=== PATIENT | male | born 1980 | race American Indian/Alaskan Native ===

== ENCOUNTER → 2018-07-07 | Emergency (ER) | payer BC ==
[2018-07-07 07:33] VITALS: BP 119/76
--- NOTE | 2018-07-07 09:30 | Emergency Department Report ---
Chief Complaint: Medical Clearance Stated Complaint: POSS THYROID PROBLEMS STD Time Seen by Provider: 07/07/18 09:17 - HPI History of Present Illness: 38-year-old male presents with a few different chronic issues. The patient has been having issues with muscle spasms and cramping. He has some intermittent rectal bleeding with bowel movements. Both these issues have been going on for the past year. He says that he saw an urgent care regarding the rectal bleeding and was told that it was something related to straining with her bowel movements. Patient says that he did some Internet searches regarding his symptoms and is concerned regarding thyroid disease and colon cancer. The patient is also requesting STD checks. He does not have a primary care physician but says that he just got insurance. Patient is a cigarette smoker. - ROS Review of Systems: Positive for muscle cramping and pain, intermittent rectal bleeding Negative for fever, nausea, vomiting, chest pain, shortness of breath, cough - Exam Vital Signs: Vital Signs 07/07/18 07:21 Temperature 98.1 F Pulse Rate 71 Respiratory 18 Rate Blood Pressure 119/76 O2 Sat by Pulse 100 Oximetry Physical Exam: Heart and lungs sounds are normal to auscultation. The patient is awake and alert in no acute distress. No palpable anterior neck swelling or mass. MSE screening note: Focused history and physical exam performed. Due to findings the following was ordered: I have ordered a CBC, BMP and TSH. Assuming all of those are negative or normal , the patient will be discharged home with a referral for primary care, gastroenterology and/or the health Department. ED Disposition for MSE Condition: Stable Referrals: PRIMARY CARE, [Primary Care Provider] - 3-5 Days
[2018-07-07 10:01] LABS: Hematocrit 44.3 % (35.5-45.6); Hemoglobin 15.3 gm/dl (11.8-15.2); Mean Corpuscular HGB Conc 35 % (32-34); Mean Corpuscular Hemoglobin 32 pg (28-32); Mean Corpuscular Volume 93 fl (84-94); Platelet Count 319 K/mm3 (140-440); Red Blood Count 4.78 M/mm3 (3.65-5.03); Red Cell Distribution Width 13.3 % (13.2-15.2)
[2018-07-07 10:11] LABS: BUN/Creatinine Ratio 18; Blood Urea Nitrogen 16 mg/dL (9-20); Calcium 9.3 mg/dL (8.4-10.2); Hemolysis Index 35
[2018-07-07 10:37] LABS: Basophils % (Manual) 0 % (0.0-1.8); Total Cells Counted 100
[2018-07-07 10:38] LABS: Stomatocytes 1+
[2018-07-07 10:39] LABS: Platelet Estimate Cons
--- NOTE | 2018-07-07 12:20 | Emergency Department Report ---
ED Medical Clearance HPI - General Chief complaint: Medical Clearance Stated complaint: POSS THYROID PROBLEMS STD Time Seen by Provider: 07/07/18 09:17 Source: patient Mode of arrival: Ambulatory Home medications: Previous Rx's Medication Instructions Recorded Last Taken Type Amoxicillin [Amoxicillin TAB] 875 mg PO BID #20 tablet 07/10/13 Unknown Rx Acetaminophen/Codeine [Tylenol #3] 1 tab PO BID #10 tablet 04/29/15 Unknown Rx Bacitracin Zinc Oint 1 applicatio TP BID #1 tube 04/29/15 Unknown Rx cephALEXin [Keflex] 500 mg PO BID #14 capsule 04/29/15 Unknown Rx Allergies/Adverse reactions: Allergies Allergy/AdvReac Type Severity Reaction Status Date / Time No Known Allergies Allergy Unverified 07/10/13 09:07 ED Review of Systems ROS: Stated complaint: POSS THYROID PROBLEMS STD Other details as noted in HPI ED Past Medical Hx - Past Medical History Previous Medical History?: No - Surgical History Past Surgical History?: No - Social History Smoking Status: Current Every Day Smoker Substance Use Type: Alcohol - Medications Home Medications: Home Medications Medication Instructions Recorded Confirmed Last Taken Type Amoxicillin [Amoxicillin TAB] 875 mg PO BID #20 tablet 07/10/13 Unknown Rx Acetaminophen/Codeine [Tylenol #3] 1 tab PO BID #10 tablet 04/29/15 Unknown Rx Bacitracin Zinc Oint 1 applicatio TP BID #1 tube 04/29/15 Unknown Rx cephALEXin [Keflex] 500 mg PO BID #14 capsule 04/29/15 Unknown Rx ED Physical Exam - General Limitations: No Limitations ED Course Vital Signs 07/07/18 07:21 Temperature 98.1 F Pulse Rate 71 Respiratory 18 Rate Blood Pressure 119/76 O2 Sat by Pulse 100 Oximetry ED Medical Decision Making - Lab Data Result diagrams: 07/07/18 09:30 07/07/18 09:30 ED Disposition Condition: Stable Referrals: PRIMARY CARE, [Primary Care Provider] - 3-5 Days
== END | disposition left against medical advice (07) ==
LOC: ED 06:58
DX: M62.838 Other muscle spasm (principal); Z53.21 Procedure and treatment not carried out due to patient leaving prior to being seen by health care provider
CPT/HCPCS: 36415; 80048; 84443; 85007; 85025

== ENCOUNTER 2020-05-04 10:03 | Emergency (ER) | payer SELFPAY ==
[2020-05-04] MEDS ORDERED: MORPHINE 4 MG/1 ML INJ IV ONE ×2 (10:14→12:13)
[2020-05-04] MEDS ORDERED: ETOMIDATE 20 MG/10 ML INJ IV ONE ×2 (10:49→12:01)
--- NOTE | 2020-05-04 10:49 | XRay Report ---
LEFT ELBOW 3 VIEWS. INDICATION / CLINICAL INFORMATION: MAIN COMPARISON: None available. FINDINGS: BONES / JOINT(S): Posterior and superior dislocation of the radius and ulna relative to the distal hu merus. No bony injury. No significant arthritis. SOFT TISSUES: No significant abnormality. ADDITIONAL FINDINGS: None. Signer Name: Emeterio Arizmendi MD Signed: 05/04/2020 10:44 AM Workstation Name: [id number]
[2020-05-04] MEDS ORDERED: MORPHINE 4 MG/1 ML INJ ONE (10:55)
--- NOTE | 2020-05-04 12:10 | Emergency Department Report ---
ED Extremity Problem HPI - General Chief complaint: Extremity Injury, Upper Stated complaint: (L) ELBOW INJURY Time Seen by Provider: 05/04/20 10:14 Source: EMS Mode of arrival: Ambulatory Limitations: No Limitations - History of Present Illness Initial comments: Patient is a 40-year-old F [place] male who states he suffered a slip and fall approximately 10 hours ago at home. Patient fell with outstretched left arm and injured his left elbow. States he took some Tylenol and Motrin and try to go to sleep however when he woke up his elbow was hurting worse and there was significant swelling. Patient decided to come to the hospital for further evaluation. Patient states the pain after IV Toradol given by EMS is a 6 out of 10 in severity. Is worse with movement is better with immobilization that was placed by paramedics. He denies any head injury or loss of consciousness. Patient states he is able to move and feel his left hand. Severity scale (0 -10): 10 - Related Data Previous Rx's Medication Instructions Recorded Last Taken Type Amoxicillin [Amoxicillin TAB] 875 mg PO BID #20 tablet 07/10/13 Unknown Rx Acetaminophen/Codeine [Tylenol #3] 1 tab PO BID #10 tablet 04/29/15 Unknown Rx Bacitracin Zinc Oint 1 applicatio TP BID #1 tube 04/29/15 Unknown Rx cephALEXin [Keflex] 500 mg PO BID #14 capsule 04/29/15 Unknown Rx Ibuprofen [Motrin 800 MG tab] 800 mg PO Q8HR PRN #14 tablet 05/04/20 Unknown Rx methOCARBAMOL [Robaxin TAB] 500 mg PO Q6H PRN #14 tablet 05/04/20 Unknown Rx oxyCODONE /ACETAMINOPHEN [Percocet 1 tab PO Q4HR #14 tab 05/04/20 Unknown Rx 5/325] Allergies Allergy/AdvReac Type Severity Reaction Status Date / Time No Known Allergies Allergy Unverified 07/10/13 09:07 ED Review of Systems ROS: Stated complaint: (L) ELBOW INJURY Other details as noted in HPI Comment: All other systems reviewed and negative ED Past Medical Hx - Social History Smoking Status: Current Every Day Smoker Substance Use Type: Alcohol - Medications Home Medications: Home Medications Medication Instructions Recorded Confirmed Last Taken Type Amoxicillin [Amoxicillin TAB] 875 mg PO BID #20 tablet 07/10/13 Unknown Rx Acetaminophen/Codeine [Tylenol #3] 1 tab PO BID #10 tablet 04/29/15 Unknown Rx Bacitracin Zinc Oint 1 applicatio TP BID #1 tube 04/29/15 Unknown Rx cephALEXin [Keflex] 500 mg PO BID #14 capsule 04/29/15 Unknown Rx Ibuprofen [Motrin 800 MG tab] 800 mg PO Q8HR PRN #14 tablet 05/04/20 Unknown Rx methOCARBAMOL [Robaxin TAB] 500 mg PO Q6H PRN #14 tablet 05/04/20 Unknown Rx oxyCODONE /ACETAMINOPHEN [Percocet 1 tab PO Q4HR #14 tab 05/04/20 Unknown Rx 5/325] ED Physical Exam - General Limitations: No Limitations General appearance: alert, in no apparent distress - Head Head exam: Present: atraumatic, normocephalic - Eye Eye exam: Present: normal appearance, PERRL, EOMI - ENT ENT exam: Present: normal orophraynx, mucous membranes moist - Neck Neck exam: Present: normal inspection - Respiratory Respiratory exam: Present: normal lung sounds bilaterally. Absent: respiratory distress, wheezes, rales, rhonchi - Cardiovascular Cardiovascular Exam: Present: regular rate, normal rhythm, normal heart sounds. Absent: systolic murmur, diastolic murmur, rubs, gallop - GI/Abdominal GI/Abdominal exam: Present: soft, normal bowel sounds. Absent: distended, tenderness, guarding, rebound - Rectal Rectal exam: Present: deferred - Extremities Exam Extremities exam: Present: normal inspection - Expanded Upper Extremity Exam Left Shoulder Exam: Present: normal inspection Elbow exam: Present: tenderness, swelling, ecchymosis, deformity, dislocation, effusion, other (Arm is in a fully extended position on arrival). Absent: normal inspection, full ROM, erythema Forearm Wrist exam: Present: normal inspection Hand Wrist exam: Present: normal inspection Vascular: Present: normal capillary refill. Absent: vascular compromise - Back Exam Back exam: Present: normal inspection - Neurological Exam Neurological exam: Present: alert, oriented X3 - Psychiatric Psychiatric exam: Present: normal affect, normal mood - Skin Skin exam: Present: warm, dry, intact, normal color. Absent: rash ED Course Vital Signs 05/04/20 05/04/20 05/04/20 10:34 10:49 11:00 Temperature 98.2 F 98.0 F Pulse Rate 68 85 Pulse Rate [ Post-Procedure] Pulse Rate [Pre -Procedure] Respiratory 16 18 20 Rate Respiratory Rate [Post- Procedure] Respiratory Rate [Pre- Procedure] Blood Pressure 125/85 120/75 [Left] Blood Pressure [Post-Procedure ] Blood Pressure [Pre-Procedure] O2 Sat by Pulse 99 100 Oximetry O2 Sat by Pulse Oximetry [Post -Procedure] O2 Sat by Pulse Oximetry [Pre- Procedure] 05/04/20 11:50 Temperature Pulse Rate Pulse Rate [ 62 Post-Procedure] Pulse Rate [Pre 85 -Procedure] Respiratory Rate Respiratory 14 Rate [Post- Procedure] Respiratory 18 Rate [Pre- Procedure] Blood Pressure [Left] Blood Pressure 102/57 [Post-Procedure ] Blood Pressure 121/65 [Pre-Procedure] O2 Sat by Pulse Oximetry O2 Sat by Pulse 100 Oximetry [Post -Procedure] O2 Sat by Pulse 100 Oximetry [Pre- Procedure] - Orthopedic Joint Reduction Joint #1 Consent Obtained: written consent Time Out Performed: Yes Side: left Joint Reduction Location: elbow Analgesia: moderate sedation Technique Used: traction/counter-traction Post-Reduction Neuro Exam: intact Post-Reduction Vascular Exam: intact Post Reduction X-Ray Obtained: Yes Post Reduction X-Ray Results: reduced Splint Applied: Yes (shoulder immobilizer) ED Medical Decision Making - Radiology Data Patient: SADIE ARELLANO MR#: [id number] : 1980 Acct:[id number] Age/Sex: 40 / M ADM Date: 05/04/20 Loc: ED Attending Dr: Ordering Physician: BALDEMAR GUDINO MD Date of Service: 05/04/20 Procedure(s): XR elbow 3+V LT Accession Number(s): [id number] cc: BALDEMAR GUDINO MD Fluoro Time In Minutes: LEFT ELBOW 3 VIEWS. INDICATION / CLINICAL INFORMATION: MAIN COMPARISON: None available. FINDINGS: BONES / JOINT(S): Posterior and superior dislocation of the radius and ulna relative to the distal humerus. No bony injury. No significant arthritis. SOFT TISSUES: No significant abnormality. ADDITIONAL FINDINGS: None. Signer Name: Emeterio Arizmendi MD Signed: 05/04/2020 10:44 AM Workstation Name: [id number] Ordering Physician: BALDEMAR GUDINO MD Date of Service: 05/04/20 Procedure(s): XR elbow 1V LT Accession Number(s): [id number] cc: BALDEMAR GUDINO MD Fluoro Time In Minutes: LEFT ELBOW ONE VIEW INDICATION / CLINICAL INFORMATION: post reduction COMPARISON: None available. FINDINGS: BONES / JOINT(S): Portable reduction at the elbow. Residual widening at the articulation of the olecranon process of the ulna and the humerus. Additional views recommended. SOFT TISSUES: No significant abnormality. ADDITIONAL FINDINGS: None. Signer Name: Emeterio Arizmendi MD Signed: 05/04/2020 12:41 PM Workstation Name: [id number] I spoke with Dr. Arizmendi with our radiology team. He stated that the olecranon humeral widening could be secondary to fluid. I did state to him that the patient is joint had been out of place approximately 10 hours and had a significant amount of swelling. Stated this likely was caused as opposed to subluxation since the patient did have full range of motion after reduction. - Medical Decision Making Patient is a 40-year-old F [place] male who had a slip and fall last night and dislocated his left elbow. Patient was sedated and we were able to reduce his elbow. Neurovascular butler he was intact after the procedure. He was placed in a shoulder immobilizer and will be given follow-up with orthopedics. Patient is given instructions on rice therapy and he was given medication for pain control. Critical care attestation.: If time is entered above; I have spent that time in minutes in the direct care of this critically ill patient, excluding procedure time. ED Disposition Clinical Impression: Elbow dislocation Qualifiers: Encounter type: initial encounter Laterality: left Qualified Code(s): S53.105A - Unspecified dislocation of left ulnohumeral joint, initial encounter Disposition: TO HOME OR SELFCARE Is pt being admited?: No Does the pt Need Aspirin: No Condition: Stable Instructions: Elbow Dislocation (ED), RICE Therapy (ED) Referrals: PAUL SANDOVAL MD [Staff Physician] - 3-5 Days Time of Disposition: 13:11
--- NOTE | 2020-05-04 12:46 | XRay Report ---
LEFT ELBOW ONE VIEW INDICATION / CLINICAL INFORMATION: post reduction COMPARISON: None available. FINDINGS: BONES / JOINT(S): Portable reduction at the elbow. Residual widening at the articulation of the olecr anon process of the ulna and the humerus. Additional views recommended. SOFT TISSUES: No significant abnormality. ADDITIONAL FINDINGS: None. Signer Name: Emeterio Arizmendi MD Signed: 05/04/2020 12:41 PM Workstation Name: [id number]
[2020-05-04] MEDS ORDERED: ONDANSETRON 4 MG ODT TAB ONE (14:38)
[2020-05-04 14:51] VITALS: BP 125/73
[2020-05-04] MEDS ORDERED: ONDANSETRON 4 MG ODT TAB PO ONE (20:29)
== END 2020-05-04 14:50 | disposition home or self-care (01) ==
LOC: ED 10:03
DX: S53.105A Unspecified dislocation of left ulnohumeral joint, initial encounter (principal); F17.200 Nicotine dependence, unspecified, uncomplicated; X58.XXXA Exposure to other specified factors, initial encounter; Y93.89 Activity, other specified; Y92.89 Other specified places as the place of occurrence of the external cause; Y99.8 Other external cause status
CPT/HCPCS: 24600; 73070; 73080; 96374; 96376; 99284; J2270; Q0162